=== PATIENT | female | born 1950 ===

== ENCOUNTER 2024-07-29 10:30 | Outpatient (RCR) | payer MEDICARE, BC, SELFPAY | END 2024-10-22 15:07 | disposition home or self-care (01) | PROVIDERS: PCP Internal Medicine; Visit Provider Orthopaedic Surgery | DX: Z48.89 Encounter for other specified surgical aftercare (principal); M17.12 Unilateral primary osteoarthritis, left knee; Z96.659 Presence of unspecified artificial knee joint; M25.562 Pain in left knee; Z51.89 Encounter for other specified aftercare | CPT/HCPCS: 97110; 97140; 97161; 97535 ==

== ENCOUNTER 2024-10-17 14:00 | Outpatient (RCR) | payer MEDICARE, BC, SELFPAY | END 2024-10-22 15:07 | disposition home or self-care (01) | PROVIDERS: PCP Internal Medicine; Visit Provider Orthopaedic Surgery | DX: Z47.1 Aftercare following joint replacement surgery (principal); Z96.651 Presence of right artificial knee joint; M25.561 Pain in right knee; Z51.89 Encounter for other specified aftercare | CPT/HCPCS: 97016; 97110; 97161 ==